=== PATIENT | male | born 1965 ===

== ENCOUNTER 2018-11-10 00:51 | Emergency (ER) | payer SELFPAY ==
[2018-11-10] MEDS ORDERED: BUPIVACAINE 0.5% PF 10 ML VIAL ONE (01:39)
[2018-11-10] MEDS ORDERED: LIDOCAINE 2% MPF 5 ML VIAL ONE (01:39)
[2018-11-10] MEDS ORDERED: LIDOCAINE 1% MPF 5 ML VIAL ONE (01:41)
--- NOTE | 2018-11-10 02:09 | EDPHYS ---
Physician Documentation [facility] Name: Kimmy Ritchie Age: 53 yrs Sex: Male : 1965 Arrival Date: 11/10/2018 Time: 00:54 Bed 26 Private MD: ED Physician Dk Warren HPI: 11/10 01:25 This 53 yrs old Male presents to ER via Ambulatory with complaints of Foreign Body, cp Hand Injury. 01:25 The patient or guardian reports the patient has a suspected foreign body, of the left cp thumb. The reported likely foreign body is a fishhook. Onset: The symptoms/episode began/occurred just prior to arrival. Current symptoms: foreign body noted to left thumb. 01:25 Treatment Prior to Arrival: tried to remove, but couldn't get out. Patient reports cp fishhook is unused and she was attempting to remove from hose when hook embedded in left thumb. Historical: - Allergies: 01:13 No Known Allergies; - Home Meds: 01:13 None [Active]; - PMHx: 01:13 None; - Immunization history:: Adult Immunizations up to date. - Social history:: Smoking status: Patient/guardian denies using tobacco. - Ebola Screening: : Patient negative for fever greater than or equal to 101.5 degrees Fahrenheit, and additional compatible Ebola Virus Disease symptoms Patient denies exposure to infectious person. ROS: 01:35 Constitutional: Negative for body aches, chills, fever, poor PO intake. cp 01:35 Cardiovascular: Negative for chest pain, palpitations. cp 01:35 Respiratory: Negative for cough, shortness of breath, wheezing. 01:35 Abdomen/GI: Negative for abdominal pain, nausea, vomiting, and diarrhea. 01:35 Skin: Positive for embedded fishhook in left thumb. 01:35 Neuro: Negative for numbness. 01:35 All other systems are negative. Exam: 01:40 Constitutional: The patient appears in no acute distress, alert, awake, non-toxic, well cp developed, well nourished. 01:40 Head/Face: Normocephalic, atraumatic. cp 01:40 Eyes: Periorbital structures: appear normal, Conjunctiva: normal, no exudate, no injection, Lids and lashes: appear normal, bilaterally. 01:40 ENT: External ear(s): are unremarkable, Nose: is normal, Mouth: is normal. 01:40 Chest/axilla: Inspection: normal. 01:40 Cardiovascular: Rate: normal. 01:40 Respiratory: the patient does not display signs of respiratory distress, Respirations: normal, no use of accessory muscles, no retractions, no splinting, no tachypnea. 01:40 Abdomen/GI: Inspection: abdomen appears normal. 01:40 Musculoskeletal/extremity: Perfusion: the extremity is normally perfused throughout, Tendon exam: specific tendon testing normal through active and passive range of motion 01:40 Skin: injury, that can be described as without bleeding, noted embedded fishhook, puncture(s), that are deep, of the jasso side proximal phalanx left thumb. 01:40 Neuro: Sensation: 2 point discrimination is decreased in the distal thumb. Vital Signs: 01:14 BP 143 / 99; Pulse 70; Resp 18; Temp 98.1; Pulse Ox 97% on R/A; wh Procedures: 02:00 Foreign Body Removal: a fishhook, from the proximal phalanx of left thumb, by needle, cp The patient tolerated the removal well. MDM: 01:07 Patient medically screened. [facility] 02:03 Refusal of service: The patient/guardian displays adequate decision making capability cp and despite a detailed discussion of alternatives, benefits, risks, and consequences refuses: all X-rays, tetanus vaccination. 02:07 Data reviewed: vital signs, nurses notes. cp 02:07 Counseling: I had a detailed discussion with the patient and/or guardian regarding: the cp historical points, exam findings, and any diagnostic results supporting the discharge/admit diagnosis, to return to the emergency department if symptoms worsen or persist or if there are any questions or concerns that arise at home. Response to treatment: the patient's symptoms have markedly improved after treatment. ED course: VSS. Patient refuses xrays of left thumb to r/o fracture and reports tetanus is within 5 years. Wound cleaned and irrigated and dressed by nursing staff. Will discharge to home for continued monitoring. 11/10 02:02 Order name: Wound Care: please clean and irrigate wound; Complete Time: 02:21 cp Administered Medications: 02:00 Drug: Lidocaine (1 %) 5 mg {Note: Administered by Dk Ohara.} Route: Infiltration; 02:00 Drug: Marcaine (0.5 %) 5 ml {Note: Administered by Dk Ohara.} Volume: 10 ml; Route: wh Infiltration; 02:21 Drug: Augmentin 875 mg Route: PO; 02:30 Follow up: Response: No adverse reaction Disposition: 02:35 Chart complete. cp Disposition: 11/10/18 02:08 Discharged to Home. Impression: Puncture wound with foreign body of left thumb without damage to nail - [place] removal. - Condition is Stable. - Discharge Instructions: Puncture Wound. - Prescriptions for Augmentin 875- 125 mg Oral Tablet - take 1 tablet by ORAL route every 12 hours for 10 days; 20 tablet. - Medication Reconciliation Form, Thank You Letter, Antibiotic Education, Prescription Opioid Use form. - Follow up: Private Physician; When: 48 Hours; Reason: Wound Recheck. - Problem is new. - Symptoms have improved. Addendum: 11/11/2018 07:11 Co-signature as Attending Physician, Dk Warren MD I agree with the assessment and c combs plan of care. Signatures: Dk Warren MD MD cha Page, Corey, PA PA Kade Frank Corrections: (The following items were deleted from the chart) 11/10 02:31 02:08 11/10/2018 02:08 Discharged to Home. Impression: Puncture wound with foreign body wh of left thumb without damage to nail - [place] removal. Condition is Stable. Forms are Medication Reconciliation Form, Thank You Letter, Antibiotic Education, Prescription Opioid Use. Follow up: Private Physician; When: 48 Hours; Reason: Wound Recheck. Problem is new. Symptoms have improved. cp
--- NOTE | 2018-11-10 02:09 | ER ---
Nurse's Notes [facility] Name: Kimmy Ritchie Age: 53 yrs Sex: Male : 1965 Arrival Date: 11/10/2018 Time: 00:54 Bed 26 Private MD: Diagnosis: Puncture wound with foreign body of left thumb without damage to nail-[place] removal Presentation: 11/10 01:10 Presenting complaint: Patient states: Pt was fishing when accidentally got the fish wh hooks embedded on her L hand. Transition of care: patient was not received from another setting of care. Onset of symptoms was November 09, 2018. Risk Assessment: Do you want to hurt yourself or someone else? Patient reports no desire to harm self or others. Initial Sepsis Screen: Does the patient meet any 2 criteria? No. Patient's initial sepsis screen is negative. Does the patient have a suspected source of infection? No. Patient's initial sepsis screen is negative. Care prior to arrival: None. 01:10 Method Of Arrival: Ambulatory 01:10 Acuity: SHAHBAZ 4 Triage Assessment: 01:11 General: Appears in no apparent distress. Pain: Denies pain. Musculoskeletal: Range of motion: intact in all extremities. Injury Description: Foreign body is located left hand is Fish Hook. 01:40 General: Behavior is calm, cooperative, appropriate for age. Historical: - Allergies: 01:13 No Known Allergies; - Home Meds: 01:13 None [Active]; - PMHx: 01:13 None; - Immunization history:: Adult Immunizations up to date. - Social history:: Smoking status: Patient/guardian denies using tobacco. - Ebola Screening: : Patient negative for fever greater than or equal to 101.5 degrees Fahrenheit, and additional compatible Ebola Virus Disease symptoms Patient denies exposure to infectious person. Screenin:11 Abuse screen: Denies threats or abuse. Denies injuries from another. Nutritional screening: No deficits noted. Tuberculosis screening: No symptoms or risk factors identified. Fall Risk None identified. Assessment: 01:45 General: Appears in no apparent distress. Pain: Denies pain. Injury Description: Foreign body is located left hand Fish hook puncture wound on L hand. 02:00 Reassessment:. 02:27 Reassessment: Patient appears in no apparent distress at this time. Patient and/or family updated on plan of care and expected duration. Pain level reassessed. Patient states feeling better. Vital Signs: 01:14 BP 143 / 99; Pulse 70; Resp 18; Temp 98.1; Pulse Ox 97% on R/A; ED Course: 00:54 Patient arrived in ED. ag3 00:59 Dk Ohara PA is PHCP. cp 00:59 Dk Warren MD is Attending Physician. 01:00 Kade Frank is Primary Nurse. 01:11 Triage completed. 01:12 Arm band placed on right wrist. 01:40 Patient has correct armband on for positive identification. Bed in low position. Call light in reach. Side rails up X 1. Pulse ox on. NIBP on. 02:00 Assist provider with foreign body removal of a fish hook from left hand Set up for procedure. Performed by Dk CHEN Dressed with gauze bandage, Patient tolerated well. Patient did not have IV access during this emergency room visit. Administered Medications: 02:00 Drug: Lidocaine (1 %) 5 mg {Note: Administered by kD Ohara.} Route: Infiltration; 02:00 Drug: Marcaine (0.5 %) 5 ml {Note: Administered by Dk Ohara.} Volume: 10 ml; Route: wh Infiltration; 02:21 Drug: Augmentin 875 mg Route: PO; 02:30 Follow up: Response: No adverse reaction Outcome: 02:08 Discharge ordered by . 02:30 Discharged to home ambulatory. 02:30 Condition: good 02:30 Discharge instructions given to patient, Instructed on discharge instructions, follow up and referral plans. medication usage, wound care, Demonstrated understanding of instructions, follow-up care, medications, wound care, Prescriptions given X 1. 02:31 Patient left the ED. Signatures: Dk Ohara PA PA cp [place], Winsy Alma Martinez ag3 Corrections: (The following items were deleted from the chart) 01:19 01:14 BP 143 / 99; Pulse 70bpm; Resp 18bpm; Pulse Ox 97% RA; Temp 97F; [facility]
[2018-11-10] MEDS ORDERED: AMOX/K CLAV 875 MG TAB ONE (02:33)
== END 2018-11-10 02:31 | disposition home or self-care (01) ==
LOC: ER 00:51
PROC: 0JCK0ZZ Extirpation of Matter from Left Hand Subcutaneous Tissue and Fascia, Open Approach (ICD-10-PCS; principal; 2018-11-10)
DX: S61.042A Puncture wound with foreign body of left thumb without damage to nail, initial encounter (principal); W45.8XXA Other foreign body or object entering through skin, initial encounter
CPT/HCPCS: 99284

== ENCOUNTER 2021-01-04 13:13 | Emergency (ER) | payer OTHER, SELFPAY ==
--- NOTE | 2021-01-04 14:22 | RAD REPORT ---
EXAM DESCRIPTION: RAD - Ankle Left 3 View - 01/04/2021 2:04 pm CLINICAL HISTORY: puncture wound, side not specified COMPARISON: No comparisons FINDINGS: No fracture, dislocation or periosteal reaction. No joint effusion seen. No joint space na rrowing. No soft tissue abnormality. No foreign body identifiable. IMPRESSION: Negative left ankle for fracture, foreign body or other acute finding.
--- NOTE | 2021-01-04 15:01 | ER ---
Nurse's Notes [facility] Name: Kimmy Ritchie Age: 55 yrs Sex: Female : 1965 Arrival Date: 01/04/2021 Time: 13:16 Bed 18 Private MD: Diagnosis: Laceration without foreign body, left lower leg Presentation: 01/04 13:20 Chief complaint: Patient states: "I got a palm frond stuck in my leg and I was unable aa5 to get it out". No active bleeding noted. Coronavirus screen: At this time, the client does not indicate any symptoms associated with coronavirus-19. Ebola Screen: Patient negative for fever greater than or equal to 101.5 degrees Fahrenheit, and additional compatible Ebola Virus Disease symptoms. Initial Sepsis Screen: Does the patient meet any 2 criteria? No. Patient's initial sepsis screen is negative. Does the patient have a suspected source of infection? No. Patient's initial sepsis screen is negative. Risk Assessment: Do you want to hurt yourself or someone else? Patient reports no desire to harm self or others. Onset of symptoms was December 2020. 13:20 Method Of Arrival: Wheelchair aa5 13:20 Acuity: SHAHBAZ 4 aa5 Triage Assessment: 13:30 General: Appears distressed, uncomfortable, obese, Behavior is cooperative, appropriate bp for age, anxious. Pain: Complains of pain in left [place]. EENT: No deficits noted. Neuro: No deficits noted. Cardiovascular: No deficits noted. Respiratory: No deficits noted. GI: No signs and/or symptoms were reported involving the gastrointestinal system. : No signs and/or symptoms were reported regarding the genitourinary system. Derm: No deficits noted. Musculoskeletal: No deficits noted. Historical: - Allergies: 13:21 No Known Allergies; aa5 - PMHx: 13:21 None; aa5 - Immunization history:: Last tetanus immunization: < 10 years ago. - Social history:: Smoking status: Patient denies any tobacco usage or history of. Screenin:30 Abuse screen: Denies threats or abuse. Denies injuries from another. Nutritional bp screening: No deficits noted. Tuberculosis screening: No symptoms or risk factors identified. Fall Risk None identified. Assessment: 13:30 General: SEE TRIAGE NOTE. bp 15:35 Reassessment: PT D/C HOME VIA W/C WITH FAMILY, DX WITH [facility]. bp Vital Signs: 13:21 BP 163 / 115; Pulse 94; Resp 18 S; Temp 98.0(TE); Pulse Ox 100% on R/A; Weight 64.86 kg aa5 (R); Height 5 ft. 9 in. (175.26 cm); 15:30 BP 147 / 89; Pulse 82; Resp 16; Temp 98; Pulse Ox 99% ; bp 13:21 Body Mass Index 21.12 (64.86 kg, 175.26 cm) aa5 ED Course: 13:16 Patient arrived in ED. as 13:20 Arm band placed on. aa5 13:21 Triage completed. aa5 13:24 Pardeep Ramírez, VIRA is Primary Nurse. bp 13:25 Gibran Blood NP is PHCP. pm1 13:25 Jose Deleon MD is Attending Physician. pm1 14:04 Ankle Left 3 View XRAY In Process Unspecified. EDMS 15:30 Patient has correct armband on for positive identification. Bed in low position. Call bp light in reach. Side rails up X2. 15:30 No provider procedures requiring assistance completed. Patient did not have IV access bp during this emergency room visit. Administered Medications: 15:05 Drug: Tetanus-Diphtheria Toxoid Adult 0.5 ml {Finishing Trimmer: [employer]. Exp: bp 07/04/2022. Lot #: [id number]. } Route: IM; Site: right gluteus; Outcome: 15:00 Discharge ordered by MD. pm1 15:17 Patient left the ED. eb 15:30 Discharged to home via wheelchair, with family. bp 15:30 Condition: stable 15:30 Discharge instructions given to patient, Instructed on discharge instructions, follow up and referral plans. medication usage, Demonstrated understanding of instructions, follow-up care, medications, Prescriptions given X 1. Signatures: Dispatcher [employer] Yolanda Collins Audri, RN RN aa5 Gibran Blood NP VETERANS' COUNSELOR pm1 Pardeep Ramírez, Natasha Naranjo RN
--- NOTE | 2021-01-04 15:01 | EDPHYS ---
Physician Documentation [facility] Name: Kimmy Ritchie Age: 55 yrs Sex: Female : 1965 Arrival Date: 01/04/2021 Time: 13:16 Bed 18 Private MD: ED Physician Jose Deleon HPI: 01/04 14:50 This 55 yrs old Female presents to ER via Wheelchair with complaints of Puncture Wound pm1 To Leg - palm frond. 14:50 The patient presents with a puncture wound. The complaints affect the left Achilles. pm1 Context: The problem was sustained outdoors, resulted from Accidentally walking backwards into palm frond, the patient can fully bear weight, the patient is able to ambulate, Problem is a result from a previous injury: No. Onset: The symptoms/episode began/occurred today. Modifying factors: The symptoms are alleviated by elevating leg, the symptoms are aggravated by weight bearing. Associated signs and symptoms: The patient has no apparent associated signs or symptoms, Pertinent negatives calf tenderness, fever, numbness, swelling, tingling. Treatment prior to arrival includes: Patient attempting to probe wound for possible foreign body. Severity of symptoms: in the emergency department the symptoms are unchanged. The patient has not experienced similar symptoms in the past. The patient has not recently seen a physician. Historical: - Allergies: 13:21 No Known Allergies; aa5 - PMHx: 13:21 None; aa5 - Immunization history:: Last tetanus immunization: < 10 years ago. - Social history:: Smoking status: Patient denies any tobacco usage or history of. ROS: 14:50 Constitutional: Negative for fever, chills, and weight loss, Cardiovascular: Negative pm1 for chest pain, palpitations, and edema, Respiratory: Negative for shortness of breath, cough, wheezing, and pleuritic chest pain, MS/Extremity: Negative for injury and deformity. 14:50 Skin: Positive for puncture, of the left Achilles. 14:50 All other systems are negative. Exam: 14:50 Constitutional: This is a well developed, well nourished patient who is awake, alert, pm1 and in no acute distress. Head/Face: Normocephalic, atraumatic. 14:50 Cardiovascular: Exam negative for acute changes, Rate: normal, Rhythm: regular, Pulses: no pulse deficits are appreciated. 14:50 Respiratory: Exam negative for acute changes, respiratory distress, shortness of breath. 14:50 Musculoskeletal/extremity: Extremities: grossly normal except: noted in the left Achilles: 1 cm shallow laceration, There is no evidence of decreased ROM, deformity, puncture, Foreign body, ROM: intact in all extremities, Circulation is intact in all extremities. the right leg Sensation intact. 14:50 Skin: Appearance: normal except for affected area, injury, As noted in musculoskeletal exam. 14:50 Neuro: Exam negative for acute changes, Orientation: is normal, Mentation: is normal, Motor: is normal, moves all fours. Vital Signs: 13:21 BP 163 / 115; Pulse 94; Resp 18 S; Temp 98.0(TE); Pulse Ox 100% on R/A; Weight 64.86 kg aa5 (R); Height 5 ft. 9 in. (175.26 cm); 15:30 BP 147 / 89; Pulse 82; Resp 16; Temp 98; Pulse Ox 99% ; bp 13:21 Body Mass Index 21.12 (64.86 kg, 175.26 cm) aa5 MDM: 13:28 Patient medically screened. pm1 14:50 ED course: Foreign body present on x-ray. Patient's wound explored extensively pm1 superficial laceration present 1 cm in length approximately 3 mm in depth. No foreign body present with exploration using sterile tweezers. Wound cleansed extensively with Hibiclens and dressing applied by RN. 14:58 Data reviewed: vital signs. Data interpreted: Pulse oximetry: on room air is 100 %. pm1 Interpretation: normal. Counseling: I had a detailed discussion with the patient and/or guardian regarding: the historical points, exam findings, and any diagnostic results supporting the discharge/admit diagnosis, radiology results, the need for outpatient follow up, to return to the emergency department if symptoms worsen or persist or if there are any questions or concerns that arise at home. 01/04 13:35 Order name: Ankle Left 3 View XRAY; Complete Time: 14:31 pm1 01/04 13:36 Order name: Wound Care; Complete Time: 15:30 pm1 Administered Medications: 15:05 Drug: Tetanus-Diphtheria Toxoid Adult 0.5 ml {Newspaper Stuffer: [employer]. Exp: bp 07/04/2022. Lot #: [id number]. } Route: IM; Site: right gluteus; Disposition: 15:24 Co-signature as Attending Physician, Jose Deleon MD I agree with the assessment and kdr plan of care. Disposition Summary: 01/04/21 15:00 Discharge Ordered Location: Home pm1 Problem: new pm1 Symptoms: have improved pm1 Condition: Stable pm1 Diagnosis - Laceration without foreign body, left lower leg pm1 Followup: pm1 - With: Emergency Department - When: As needed - Reason: Worsening of condition Followup: pm1 - With: Private Physician - When: 2 - 3 days - Reason: Recheck today's complaints, Continuance of care, Re-evaluation by your physician Discharge Instructions: - Discharge Summary Sheet pm1 - Laceration Care, Adult pm1 Forms: - Medication Reconciliation Form pm1 - Thank You Letter pm1 - Antibiotic Education pm1 - Prescription Opioid Use pm1 Prescriptions: - Bactrim DS 800-160 mg Oral Tablet - take 1 tablet by ORAL route every 12 hours for 10 days; 20 tablet; Refills: 0, pm1 Product Selection Permitted Signatures: Dispatcher [employer] EDJose Damon MD MD [facility] Yesy Bahena, RN RN aa5 Gibran Blood NP OIL REFINER pm1 Pardeep Ramírez, RN RN bp
[2021-01-04 15:21] VITALS: BP 163/115; TEMP 98; O2SAT 100
[2021-01-04] MEDS ORDERED: TETANUS & DIPHTHERIA TOX,ADULT 0.5 ML VIAL ONE (15:30)
== END 2021-01-04 15:17 | disposition home or self-care (01) ==
LOC: EDSEX 13:13 → ER 13:13
DX: S91.332A Puncture wound without foreign body, left foot, initial encounter (principal); Z23 Encounter for immunization
CPT/HCPCS: 90471; 90714; 99283